=== PATIENT | male | born 1950 | race Caucasian/White ===

== ENCOUNTER 2016-09-22 20:35 | Outpatient (CLI) | payer MEDICARE, OTHER ==
--- NOTE | 2016-09-22 21:49 | Ultrasound Preliminary Report ---
Exam: US Duplex Ext Veins Left IMPRESSION: Extensive deep venous thrombosis extending from the common femoral vein through the popli teal vein, abscess described above. The calf veins were not well seen. [facility] The above critical findings were discussed with Dr. Pennington by Dr. Fernanda Marroquin at 21:48 hrs on . SITE ID: [id number]
--- NOTE | 2016-09-22 21:52 | Ultrasound Report ---
EXAM: LEFT LOWER EXTREMITY VENOUS ULTRASOUND EXAM DATE: 09/22/2016 08:48 PM. CLINICAL HISTORY: Left leg swelling. History of tibial plateau ORIF. COMPARISON: None. TECHNIQUE: Real-time sonographic vascular imaging was performed by the vacuum truck driver through the lower extremity utilizing both color-flow and Doppler spectral analysis. Multiple front desk representative static josephine ges were saved for review. FINDINGS: Common Femoral Vein (CFV): Nonocclusive thrombus. CFV-GSV Junction: Nonocclusive thrombus. Profunda Femoral Vein (PFV): Occlusive thrombus. Femoral Vein (FV) Prox: Occlusive thrombus. Femoral Vein (FV) Mid: Occlusive thrombus. Femoral Vein (FV) Dist: Occlusive thrombus. Popliteal Vein: Occlusive thrombus. Posterior Tibial Veins: Not well seen. Peroneal Veins: Not well seen. Other: Subcutaneous edema in the calf. IMPRESSION: Extensive deep venous thrombosis extending from the common femoral vein through the popli teal vein, abscess described above. The calf veins were not well seen. RADIA The above critical findings were discussed with Dr. Pennington by Dr. Fernanda Marroquin at 21:48 hrs on . Referring Provider Line: [phone] SITE ID: [id number]
== END 2016-09-22 20:36 | disposition home or self-care (01) ==
LOC: DI 20:35
PROVIDERS: ATTEND Orthopaedic Surgery
DX: I82.412 Acute embolism and thrombosis of left femoral vein (principal); I82.432 Acute embolism and thrombosis of left popliteal vein

== ENCOUNTER 2016-09-22 21:58 | Emergency (ER) | payer MEDICARE, OTHER ==
[2016-09-22 22:50] LABS: BASOPHILS # (AUTO) 0.1 10^3/uL (0.0-0.1); BASOPHILS % (AUTO) 1.3 %; EOSINOPHILS # (AUTO) 0.1 10^3/uL (0.0-0.7); HCT - HEMATOCRIT 42.2 % (42.0-52.0); HGB - HEMOGLOBIN 13.9 g/dL (14.0-18.0); LYMPHOCYTES # (AUTO) 1.9 10^3/uL (1.5-3.5); LYMPHOCYTES % (AUTO) 27.1 %; MEAN CORPUSCULAR HEMOGLOBIN 28.6 pg (27.0-31.0); MEAN CORPUSCULAR HGB CONC 32.9 g/dL (32.0-36.0); MEAN CORPUSCULAR VOLUME 86.9 fL (80.0-94.0); MEAN PLATELET VOLUME 6.7 fL (7.4-11.4); MONOCYTES # (AUTO) 0.6 10^3/uL (0.0-1.0); MONOCYTES % (AUTO) 8.6 %; NEUTROPHILS # (AUTO) 4.3 10^3/uL (1.5-6.6); RED BLOOD COUNT 4.86 10^6/uL (4.70-6.10); RED CELL DISTRIBUTION WIDTH 13.5 % (12.0-15.0); UNCORRECTED WHITE BLOOD COUNT 7.1 x10^3/uL; WHITE BLOOD COUNT 7.1 x10^3/uL (4.8-10.8)
[2016-09-22 22:56] LABS: INR 1.1 (0.8-1.2); PT - PROTHROMBIN TIME 12.4 secs (9.9-12.6)
--- NOTE | 2016-09-22 23:01 | ED Physician Documentation ---
History of Present Illness - Stated complaint Stated Complaint: LT LEG PX - Chief complaint Chief Complaint: Ext Problem - History obtained from History obtained from: Patient - History of Present Illness Timing: Chronic - Additonal information Additional information: Patient is a 65 year old male with a distant history of knee surgery who was sent to the orthopedist group for 6 months of leg swelling. at the ortho office patient was sent for an ultrasound. ultrasound revealed significant clot burden so the orthopedist, Dr. Pennington called and sent the patient in for treatment. Patient also reports some dyspnea with exertion over the last few weeks so there was some concern for PE as well. Review of Systems Constitutional: denies: Fever, Chills Eyes: denies: Loss of vision, Photophobia Ears: denies: Ear pain, Drainage/discharge Nose: denies: Rhinorrhea / runny nose, Congestion Throat: denies: Oral lesions / sores, Sore throat Cardiac: reports: Pedal edema, Calf pain. denies: Chest pain / pressure, Palpitations Respiratory: reports: Dyspnea. denies: Cough, Wheezing GI: denies: Abdominal Pain, Nausea, Vomiting : denies: Dysuria, Frequency, Hesitancy Skin: denies: Rash, Lesions Musculoskeletal: reports: Extremity pain, Extremity swelling. denies: Neck pain , Back pain Neurologic: denies: Generalized weakness, Focal weakness, Numbness, Difficulty speaking Immunocompromised: denies: Immunocompromised PD PAST MEDICAL HISTORY - Past Medical History Past Medical History: Yes Respiratory: Asthma, Pneumonia - Present Medications Home Medications: Ambulatory Orders Medication Instructions Recorded Confirmed buPROPion [Wellbutrin Sr] 1 tab ORAL DAILY 09/19/13 09/19/13 Enoxaparin [Lovenox] 80 mg SUBQ Q12H #20 syringe 09/23/16 Warfarin [Coumadin] 5 mg PO 1400 #10 tablet 09/23/16 - Allergies Allergies/Adverse Reactions: Allergies Allergy/AdvReac Type Severity Reaction Status Date / Time No Known Drug Allergies Allergy Verified 09/19/13 15:12 - Social History Does the pt smoke?: No Smoking Status: Never smoker Does the pt drink ETOH?: No Does the pt have substance abuse?: No PD ED PE NORMAL - Vitals Vital signs reviewed: Yes - General General: Alert and oriented X 3, No acute distress - HEENT HEENT: Atraumatic, PERRL - Neck Neck: Supple, no meningeal sign, No JVD - Cardiac Cardiac: RRR, No murmur - Respiratory Respiratory: No respiratory distress, Clear bilaterally - Abdomen Abdomen: Soft, Non tender, Non distended - Derm Derm: Normal color - Neuro Neuro: Alert and oriented X 3, No motor deficit, No sensory deficit, Normal speech - Psych Psych: Normal mood, Normal affect PD ED PE EXPANDED - Extremities Extremities: Pedal edema R, Left calf TTP/cord, Motor intact, Sensory intact, Vascular intact, Tendon intact. No: Decreased/absent pulse, Cold foot Results - Vitals Vitals: Vital Signs - 24 hr 09/22/16 09/23/16 22:10 00:41 Temperature 98.9 C H Heart Rate 85 78 Respiratory 18 16 Rate Blood Pressure 169/85 H 127/80 O2 Saturation 97 100 Oxygen O2 Source Room air - Labs Labs: Laboratory Tests 09/22/16 09/22/16 09/22/16 22:41 22:41 22:41 WBC 7.1 RBC 4.86 Hgb 13.9 L Hct 42.2 MCV 86.9 MCH 28.6 MCHC 32.9 RDW 13.5 Plt Count 331 MPV 6.7 L Neut # 4.3 Lymph # 1.9 [place] # 0.6 Eos # 0.1 Baso # 0.1 Absolute Nucleated RBC 0.00 Nucleated RBCs 0.0 PT 12.4 INR 1.1 APTT 24.5 L Sodium 139 Potassium 3.7 Chloride 102 Carbon Dioxide 29 Anion Gap 8.0 BUN 14 Creatinine 0.9 Estimated GFR (MDRD) 84 L Glucose 130 H Calcium 9.4 Total Bilirubin 0.3 AST 22 ALT 21 Alkaline Phosphatase 49 Troponin I B-Natriuretic Peptide Total Protein 7.9 Albumin 4.4 Globulin 3.5 Albumin/Globulin Ratio 1.3 Lipase 18 L 09/22/16 09/22/16 22:41 22:41 WBC RBC Hgb Hct MCV MCH MCHC RDW Plt Count MPV Neut # Lymph # [place] # Eos # Baso # Absolute Nucleated RBC Nucleated RBCs PT INR APTT Sodium Potassium Chloride Carbon Dioxide Anion Gap BUN Creatinine Estimated GFR (MDRD) Glucose Calcium Total Bilirubin AST ALT Alkaline Phosphatase Troponin I < 0.04 B-Natriuretic Peptide 57 Total Protein Albumin Globulin Albumin/Globulin Ratio Lipase - Rads (name of study) ct chest Radiology: Final report received (no pe appreciated), See rad report PD MEDICAL DECISION MAKING - ED course Complexity details: reviewed old records, reviewed results, re-evaluated patient , considered differential, d/w patient, d/w financial planning consultant ED course: Patient was seen and examined at bedside. IV access was gained and labs were drawn. Patient's previous results were reviewed and were consistent with dvt. patient was treated with lovenox and coumadin. when patient's labs came back patient was sent for imaging. When patient returned from imaging the results were reviewed. there was no acute PE appreciated. patient was educated on lovenox and heparin and given detailed discharge and return instructions. patient required no further work up and was stable for discharge with outpatient follow up. Departure - Departure Disposition: Home, Self Care Clinical Impression: DVT (deep venous thrombosis) Condition: Good Instructions: ED DVT Follow-Up: Joshua Coronado PA-C [Primary Care Provider] - Tomorrow Prescriptions: Warfarin [Coumadin] 5 mg PO 1400 #10 tablet Enoxaparin [Lovenox] 80 mg SUBQ Q12H #20 syringe Comments: Your symptoms are being caused by a blood clot in your leg. There are no blood clots in your chest at this time. You were started on lovenox and warfarin. You will need to take the lovenox shot twice a day until you get your warfarin to the appropriate levels. It is imperative that you call your doctor tomorrow to schedule a follow up appointment in the next few days. if you are unable to get the lovenox shot tomorrow from the pharmacy or your pmd you will need to return to emergency department for another shot. Discharge Date/Time: 09/23/16 00:49
[2016-09-22 23:03] LABS: PARTIAL THROMBOPLASTIN TIME 24.5 secs (24.9-33.3)
[2016-09-22 23:04] LABS: ALBUMIN/GLOBULIN RATIO 1.3 (1.0-2.2); BILIRUBIN,TOTAL 0.3 mg/dL (0.2-1.0); CALCIUM 9.4 mg/dL (8.5-10.3); CREATININE 0.9 mg/dL (0.6-1.2); POTASSIUM 3.7 mmol/L (3.5-5.0); TOTAL PROTEIN 7.9 g/dL (6.7-8.2)
[2016-09-22] MEDS ORDERED: WARFARIN 5 MG TABLET PO STA (23:48)
[2016-09-22] MEDS ORDERED: ENOXAPARIN 80 MG/0.8 ML SYRINGE SUBQ STA (23:48)
[2016-09-22] MEDS ORDERED: IOPAMIDOL-300 100 ML VIAL IVP ONE (23:51)
[2016-09-22] MEDS ORDERED: ENOXAPARIN 80 MG/0.8 ML SYRINGE SUBQ ONE (23:54)
--- NOTE | 2016-09-23 00:20 | CT Report ---
EXAM: CT ANGIOGRAM CHEST EXAM DATE: 09/22/2016 11:55 PM. CLINICAL HISTORY: Dyspnea. COMPARISON: None. TECHNIQUE: Routine helical imaging was performed through the chest in the pulmonary arterial phase. I V Contrast: 100 cc Isovue-300. Reconstructions: Coronal 3-D MIP reconstructions.Sagittal and coronal. In accordance with CT protocol optimization, one or more of the following dose reduction techniques w ere utilized for this exam: automated exposure control, adjustment of mA and/or KV based on patient s ize, or use of iterative reconstructive technique. FINDINGS: Pulmonary Arteries: Diagnostic quality: Adequate through the mid segmental arteries. No evidence for acute or chronic pul monary emboli. RV/LV is within normal limits. There is no interventricular septal bowing. There is no reflux of cont rast material in the IVC. Lungs/Pleura: There are areas of peripheral consolidation with architectural distortion within the ri ght middle lobe and right lower lobe. Left lung demonstrates no acute abnormalities. No evidence of p neumothorax. Mediastinum: Normal. No cardiac enlargement or adenopathy. Thoracic Aorta: Unremarkable. Upper Abdomen: Unremarkable. Other: Areas of hypodensity within the mid and lower thoracic spine likely represent hemangiomas. IMPRESSION: 1. No evidence of acute pulmonary embolism through the segmental branch level. 2. There are areas of juxtapleural consolidation with architectural distortion and traction bronchiec tasis seen within the right middle lobe and left lower lobe. Differential considerations include scar ring or organizing pneumonia. [address] follow-up could be used to demonstrate stabil ity/resolution of these foci and to exclude underlying mass. 3. No thoracic aortic dissection. [facility] Referring Provider Line: [phone] SITE ID: [id number]
[2016-09-23 00:50] VITALS: BP 127/80
== END 2016-09-23 00:49 | disposition home or self-care (01) ==
LOC: ED 21:58
DX: I82.403 Acute embolism and thrombosis of unspecified deep veins of lower extremity, bilateral (principal); J45.909 Unspecified asthma, uncomplicated
CPT/HCPCS: 36415; 71275; 80053; 83690; 83880; 84484; 85025; 85610; 85730; 93971; 96372; 99283; 99285; A9270; J1650; Q9967

== ENCOUNTER 2016-09-25 14:38 | Outpatient (CLI) | payer MEDICARE, OTHER | END 2016-09-25 14:39 | disposition home or self-care (01) | LOC: LAB.N 14:38 | PROVIDERS: ATTEND Physician Assistant | DX: I82.90 Acute embolism and thrombosis of unspecified vein (principal) | CPT/HCPCS: 85610 ==

== ENCOUNTER 2016-09-29 08:00 | Outpatient (CLI) | payer MEDICARE, OTHER | END 2016-09-29 08:01 | disposition home or self-care (01) | LOC: LAB.N 08:00 | PROVIDERS: ATTEND Physician Assistant | DX: I82.90 Acute embolism and thrombosis of unspecified vein (principal) | CPT/HCPCS: 85610 ==

== ENCOUNTER 2016-10-02 10:24 | Outpatient (CLI) | payer MEDICARE, OTHER | END 2016-10-02 10:25 | disposition home or self-care (01) | LOC: LAB.N 10:24 | PROVIDERS: ATTEND Physician Assistant | DX: I82.90 Acute embolism and thrombosis of unspecified vein (principal) | CPT/HCPCS: 85610 ==

== ENCOUNTER 2016-10-06 11:45 | Outpatient (CLI) | payer MEDICARE, OTHER | END 2016-10-06 11:46 | disposition home or self-care (01) | LOC: LAB.N 11:45 | PROVIDERS: ATTEND Physician Assistant | DX: I82.90 Acute embolism and thrombosis of unspecified vein (principal) | CPT/HCPCS: 85610 ==

== ENCOUNTER 2016-10-09 09:33 | Outpatient (CLI) | payer MEDICARE, OTHER | END 2016-10-09 09:34 | disposition home or self-care (01) | LOC: LAB.N 09:33 | PROVIDERS: ATTEND Physician Assistant | DX: I82.90 Acute embolism and thrombosis of unspecified vein (principal) | CPT/HCPCS: 85610 ==

== ENCOUNTER 2016-10-13 11:33 | Outpatient (CLI) | payer MEDICARE, OTHER | END 2016-10-13 11:34 | disposition home or self-care (01) | LOC: LAB.N 11:33 | PROVIDERS: ATTEND Physician Assistant | DX: I82.90 Acute embolism and thrombosis of unspecified vein (principal) | CPT/HCPCS: 85610 ==

== ENCOUNTER 2016-10-20 22:08 | Outpatient (CLI) | payer MEDICARE, OTHER | END 2016-10-20 22:09 | disposition home or self-care (01) | LOC: LAB.N 22:08 | PROVIDERS: ATTEND Physician Assistant | DX: I82.90 Acute embolism and thrombosis of unspecified vein (principal) | CPT/HCPCS: 85610 ==

== ENCOUNTER 2016-11-03 07:43 | Outpatient (CLI) | payer MEDICARE, OTHER | END 2016-11-03 07:44 | disposition home or self-care (01) | LOC: LAB.N 07:43 | PROVIDERS: ATTEND Physician Assistant | DX: I82.90 Acute embolism and thrombosis of unspecified vein (principal) | CPT/HCPCS: 85610 ==

== ENCOUNTER 2016-11-17 09:50 | Outpatient (CLI) | payer MEDICARE, OTHER | END 2016-11-17 09:51 | disposition home or self-care (01) | LOC: LAB.N 09:50 | PROVIDERS: ATTEND Physician Assistant | DX: I82.90 Acute embolism and thrombosis of unspecified vein (principal) | CPT/HCPCS: 85610 ==

== ENCOUNTER 2016-12-03 08:00 | Outpatient (CLI) | payer MEDICARE, OTHER | END 2016-12-03 08:01 | disposition home or self-care (01) | LOC: LAB.N 08:00 | PROVIDERS: ATTEND Physician Assistant | DX: I82.90 Acute embolism and thrombosis of unspecified vein (principal) | CPT/HCPCS: 85610 ==

== ENCOUNTER 2016-12-31 09:08 | Outpatient (CLI) | payer MEDICARE, OTHER | END 2016-12-31 09:09 | disposition home or self-care (01) | LOC: LAB.N 09:08 | PROVIDERS: ATTEND Family Medicine | DX: I82.409 Acute embolism and thrombosis of unspecified deep veins of unspecified lower extremity (principal) | CPT/HCPCS: 85610 ==

== ENCOUNTER 2017-01-28 15:09 | Outpatient (CLI) | payer MEDICARE, OTHER | END 2017-01-28 15:10 | disposition home or self-care (01) | LOC: LAB.N 15:09 | PROVIDERS: ATTEND Family Medicine | DX: I82.90 Acute embolism and thrombosis of unspecified vein (principal) | CPT/HCPCS: 85610 ==

== ENCOUNTER 2017-03-03 08:30 | Outpatient (CLI) | payer MEDICARE, OTHER | END 2017-03-03 08:31 | disposition home or self-care (01) | LOC: LAB.N 08:30 | PROVIDERS: ATTEND Family Medicine | DX: I82.90 Acute embolism and thrombosis of unspecified vein (principal) | CPT/HCPCS: 85610 ==

== ENCOUNTER 2017-03-10 19:36 | Outpatient (CLI) | payer MEDICARE, OTHER | END 2017-03-10 19:37 | disposition home or self-care (01) | LOC: LAB.N 19:36 | PROVIDERS: ATTEND Family Medicine | DX: I82.90 Acute embolism and thrombosis of unspecified vein (principal) | CPT/HCPCS: 85610 ==

== ENCOUNTER 2017-03-17 15:02 | Outpatient (CLI) | payer MEDICARE, OTHER | END 2017-03-17 15:03 | disposition home or self-care (01) | LOC: LAB.N 15:02 | PROVIDERS: ATTEND Family Medicine | DX: I82.90 Acute embolism and thrombosis of unspecified vein (principal) | CPT/HCPCS: 85610 ==

== ENCOUNTER 2017-03-27 08:00 | Outpatient (CLI) | payer MEDICARE, OTHER ==
[2017-03-27 13:45] LABS: THYROID STIMULATING HORMONE 1.79 uIU/mL (0.34-5.60)
[2017-03-27 13:46] LABS: BASOPHILS # (AUTO) 0.1 10^3/uL (0.0-0.1); BASOPHILS % (AUTO) 1.1 %; EOSINOPHILS # (AUTO) 0.1 10^3/uL (0.0-0.7); EOSINOPHILS % (AUTO) 1.5 %; HCT - HEMATOCRIT 40.6 % (42.0-52.0); HGB - HEMOGLOBIN 13.7 g/dL (14.0-18.0); IMMATURE RETIC FRACTION 0.33; LYMPHOCYTES # (AUTO) 1.6 10^3/uL (1.5-3.5); LYMPHOCYTES % (AUTO) 26.1 %; MEAN CORPUSCULAR HEMOGLOBIN 29.7 pg (27.0-31.0); MEAN CORPUSCULAR HGB CONC 33.8 g/dL (32.0-36.0); MEAN CORPUSCULAR VOLUME 87.9 fL (80.0-94.0); MONOCYTES # (AUTO) 0.8 10^3/uL (0.0-1.0); MONOCYTES % (AUTO) 12.6 %; NEUTROPHILS # (AUTO) 3.7 10^3/uL (1.5-6.6); NEUTROPHILS % (AUTO) 58.7 %; RED BLOOD COUNT 4.62 10^6/uL (4.70-6.10); RED CELL DISTRIBUTION WIDTH 14.4 % (12.0-15.0); UNCORRECTED WHITE BLOOD COUNT 6.3 x10^3/uL; WHITE BLOOD COUNT 6.3 x10^3/uL (4.8-10.8)
[2017-03-27 13:50] LABS: FERRITIN 78.5 ng/mL (23.9-336.2)
[2017-03-27 14:00] LABS: ALBUMIN/GLOBULIN RATIO 1.3 (1.0-2.2); BILIRUBIN,TOTAL 0.6 mg/dL (0.2-1.0); BUN - BLOOD UREA NITROGEN 14 mg/dL (6-20); CALCIUM 9.3 mg/dL (8.5-10.3); CARBON DIOXIDE - CO2 25 mmol/L (21-32); CHLORIDE 102 mmol/L (101-111); CHOL/HDL RATIO 2.9 (<5.0); CHOLESTEROL 166 mg/dL; GFR - MDRD 74 (>89); GLUCOSE 107 mg/dL (70-100); HDL CHOLESTEROL 58 mg/dL; IRON 57 ug/dL (45-182); LDL/HDL RATIO 1.7 (<3.6); POTASSIUM 3.9 mmol/L (3.5-5.0); SODIUM 138 mmol/L (135-145); TOTAL IRON BINDING CAPACITY 307 ug/dL (250-450); TOTAL PROTEIN 7.5 g/dL (6.7-8.2); TRANSFERRIN 219 mg/dL (180-329); TRIGLYCERIDES 56 mg/dL; VLDL CHOLESTEROL 11 mg/dL
== END 2017-03-27 08:01 | disposition home or self-care (01) ==
LOC: LAB.N 08:00
PROVIDERS: ATTEND Family Medicine
DX: I82.90 Acute embolism and thrombosis of unspecified vein (principal); I10 Essential (primary) hypertension; D50.9 Iron deficiency anemia, unspecified; Z79.01 Long term (current) use of anticoagulants; R42 Dizziness and giddiness
CPT/HCPCS: 36415; 80053; 80061; 82728; 83540; 84443; 84466; 85025; 85044; 85610; 93005

== ENCOUNTER 2017-03-30 08:41 | Outpatient (CLI) | payer MEDICARE, OTHER | END 2017-03-30 08:42 | disposition home or self-care (01) | LOC: LAB.N 08:41 | PROVIDERS: ATTEND Family Medicine | DX: I82.90 Acute embolism and thrombosis of unspecified vein (principal) | CPT/HCPCS: 85610 ==

== ENCOUNTER 2017-04-07 08:00 | Outpatient (CLI) | payer MEDICARE, OTHER | END 2017-04-07 08:01 | disposition home or self-care (01) | LOC: LAB.N 08:00 | PROVIDERS: ATTEND Family Medicine | DX: I82.90 Acute embolism and thrombosis of unspecified vein (principal) | CPT/HCPCS: 85610 ==

== ENCOUNTER 2017-04-14 08:00 | Outpatient (CLI) | payer MEDICARE, OTHER | END 2017-04-14 08:01 | disposition home or self-care (01) | LOC: LAB.N 08:00 | PROVIDERS: ATTEND Family Medicine | DX: I82.90 Acute embolism and thrombosis of unspecified vein (principal) | CPT/HCPCS: 85610 ==

== ENCOUNTER 2017-04-21 08:00 | Outpatient (CLI) | payer MEDICARE, OTHER | END 2017-04-21 08:01 | disposition home or self-care (01) | LOC: LAB.N 08:00 | PROVIDERS: ATTEND Family Medicine | DX: I82.90 Acute embolism and thrombosis of unspecified vein (principal) | CPT/HCPCS: 85610 ==

== ENCOUNTER 2017-05-05 09:08 | Outpatient (CLI) | payer MEDICARE, OTHER | END 2017-05-05 09:09 | disposition home or self-care (01) | LOC: LAB.N 09:08 | PROVIDERS: ATTEND Family Medicine | DX: I82.90 Acute embolism and thrombosis of unspecified vein (principal) | CPT/HCPCS: 85610 ==

== ENCOUNTER 2017-06-03 08:12 | Outpatient (CLI) | payer MEDICARE, OTHER | END 2017-06-03 08:13 | disposition home or self-care (01) | LOC: LAB.N 08:12 | PROVIDERS: ATTEND Family Medicine | DX: I82.90 Acute embolism and thrombosis of unspecified vein (principal) | CPT/HCPCS: 85610 ==

== ENCOUNTER 2017-06-30 08:08 | Outpatient (CLI) | payer MEDICARE, OTHER | END 2017-06-30 08:09 | disposition home or self-care (01) | LOC: LAB.N 08:08 | PROVIDERS: ATTEND Family Medicine | DX: I82.90 Acute embolism and thrombosis of unspecified vein (principal) | CPT/HCPCS: 85610 ==

== ENCOUNTER 2017-07-29 08:22 | Outpatient (CLI) | payer MEDICARE, OTHER | END 2017-07-29 08:23 | disposition home or self-care (01) | LOC: LAB.N 08:22 | PROVIDERS: ATTEND Family Medicine | DX: I82.90 Acute embolism and thrombosis of unspecified vein (principal) | CPT/HCPCS: 85610 ==

== ENCOUNTER 2017-08-11 09:06 | Outpatient (CLI) | payer MEDICARE, OTHER | END 2017-08-11 09:07 | LOC: LAB.N 09:06 | PROVIDERS: ATTEND Family Medicine | DX: I82.90 Acute embolism and thrombosis of unspecified vein (principal) | CPT/HCPCS: 85610 ==

== ENCOUNTER 2017-09-08 08:10 | Outpatient (CLI) | payer MEDICARE, OTHER | END 2017-09-08 08:11 | LOC: LAB.N 08:10 | PROVIDERS: ATTEND Family Medicine | DX: I82.90 Acute embolism and thrombosis of unspecified vein (principal) | CPT/HCPCS: 85610 ==

== ENCOUNTER 2017-09-15 08:00 | Outpatient (CLI) | payer MEDICARE, OTHER | END 2017-09-15 08:01 | disposition home or self-care (01) | LOC: LAB.N 08:00 | PROVIDERS: ATTEND Family Medicine | DX: I82.90 Acute embolism and thrombosis of unspecified vein (principal) | CPT/HCPCS: 85610 ==

== ENCOUNTER 2017-09-15 10:27 | Outpatient (CLI) | payer MEDICARE, OTHER ==
--- NOTE | 2017-09-15 12:09 | Ultrasound Report ---
LEFT LEG VENOUS DUPLEX: 09/15/2017 CLINICAL INDICATION: Followup DVT. COMPARISON: 03/31/2017. TECHNIQUE: Real-time sonographic vascular imaging was performed by the shipmaster through the left leg utilizing both color-flow and Doppler spectral analysis. Multiple medical office representative static images were saved for review. FINDINGS: There is persistent thrombus in the left superficial femoral vein and popliteal vein. The calf veins appear unremarkable, and the left common femoral vein is patent, as is the profunda femoris. IMPRESSION: PERSISTENT RECANALIZED THROMBUS IN THE LEFT SUPERFICIAL FEMORAL AND POPLITEAL VEINS. TD: 09/15/2017 11:32
== END 2017-09-15 10:28 | disposition home or self-care (01) ==
LOC: DI 10:27
PROVIDERS: ATTEND Family Medicine
DX: I82.412 Acute embolism and thrombosis of left femoral vein (principal); I82.432 Acute embolism and thrombosis of left popliteal vein
CPT/HCPCS: 85610

== ENCOUNTER 2017-09-18 09:35 | Outpatient (CLI) | payer MEDICARE, OTHER | END 2017-09-18 09:36 | disposition home or self-care (01) | LOC: LAB.N 09:35 | PROVIDERS: ATTEND Family Medicine | DX: I82.90 Acute embolism and thrombosis of unspecified vein (principal) | CPT/HCPCS: 85610 ==

== ENCOUNTER 2017-09-22 08:00 | Outpatient (CLI) | payer MEDICARE, OTHER | END 2017-09-22 08:01 | disposition home or self-care (01) | LOC: LAB.N 08:00 | PROVIDERS: ATTEND Family Medicine | DX: I82.90 Acute embolism and thrombosis of unspecified vein (principal) | CPT/HCPCS: 85610 ==

== ENCOUNTER 2017-10-06 08:00 | Outpatient (CLI) | payer MEDICARE, OTHER | END 2017-10-06 08:01 | disposition home or self-care (01) | LOC: LAB.N 08:00 | PROVIDERS: ATTEND Family Medicine | DX: I82.90 Acute embolism and thrombosis of unspecified vein (principal) | CPT/HCPCS: 85610 ==

== ENCOUNTER 2017-10-07 08:00 | Outpatient (CLI) | payer MEDICARE, OTHER ==
[2017-10-07 12:30] LABS: BASOPHILS # (AUTO) 0.1 10^3/uL (0.0-0.1); BASOPHILS % (AUTO) 1.5 %; EOSINOPHILS # (AUTO) 0.1 10^3/uL (0.0-0.7); EOSINOPHILS % (AUTO) 1.5 %; HGB - HEMOGLOBIN 13.8 g/dL (14.0-18.0); LYMPHOCYTES # (AUTO) 1.5 10^3/uL (1.5-3.5); LYMPHOCYTES % (AUTO) 31.5 %; MEAN CORPUSCULAR HEMOGLOBIN 29.2 pg (27.0-31.0); MEAN CORPUSCULAR VOLUME 88.5 fL (80.0-94.0); MEAN PLATELET VOLUME 8.3 fL (7.4-11.4); MONOCYTES # (AUTO) 0.5 10^3/uL (0.0-1.0); MONOCYTES % (AUTO) 10.8 %; NEUTROPHILS # (AUTO) 2.5 10^3/uL (1.5-6.6); NEUTROPHILS % (AUTO) 54.7 %; PLT - PLATELET COUNT 215 10^3/uL (130-450); RED BLOOD COUNT 4.71 10^6/uL (4.70-6.10); RED CELL DISTRIBUTION WIDTH 14.5 % (12.0-15.0); WHITE BLOOD COUNT 4.6 x10^3/uL (4.8-10.8)
[2017-10-07 12:33] LABS: ALBUMIN 3.7 g/dL (3.2-5.5); ALBUMIN/GLOBULIN RATIO 1.1 (1.0-2.2); ALKALINE PHOSPHATASE 38 IU/L (42-121); ALT ALANINE AMINOTRANSFERASE 20 IU/L (10-60); AST ASPARTATE AMINOTRANSFERASE 21 IU/L (10-42); BILIRUBIN,TOTAL 0.6 mg/dL (0.2-1.0); BUN - BLOOD UREA NITROGEN 10 mg/dL (6-20); CALCIUM 8.9 mg/dL (8.5-10.3); CARBON DIOXIDE - CO2 31 mmol/L (21-32); CHLORIDE 104 mmol/L (101-111); CHOL/HDL RATIO 3.4 (<5.0); CHOLESTEROL 141 mg/dL; CREATININE 0.9 mg/dL (0.6-1.2); GFR - MDRD 84 (>89); GLUCOSE 100 mg/dL (70-100); HDL CHOLESTEROL 41 mg/dL; LDL CHOLESTEROL,CALCULATED 79 mg/dL; LDL/HDL RATIO 1.9 (<3.6); SODIUM 141 mmol/L (135-145); VLDL CHOLESTEROL 21 mg/dL
[2017-10-07 12:42] LABS: HB2 TOTAL 15.2 g/dL; HEMOGLOBIN A1C 0.52 g/dL; HEMOGLOBIN A1C % 5.3 % (4.6-6.2)
== END 2017-10-07 08:01 ==
LOC: LAB.N 08:00
PROVIDERS: ATTEND Family Medicine
DX: I10 Essential (primary) hypertension (principal); I82.90 Acute embolism and thrombosis of unspecified vein; F32.9 Major depressive disorder, single episode, unspecified; R73.9 Hyperglycemia, unspecified
CPT/HCPCS: 36415; 80053; 80061; 83036; 83721; 84443; 85025

== ENCOUNTER 2017-10-28 08:00 | Outpatient (CLI) | payer MEDICARE, OTHER | END 2017-10-28 08:01 | disposition home or self-care (01) | LOC: LAB.N 08:00 | PROVIDERS: ATTEND Family Medicine | DX: I82.90 Acute embolism and thrombosis of unspecified vein (principal) | CPT/HCPCS: 85610 ==

== ENCOUNTER 2017-11-04 08:00 | Outpatient (CLI) | payer MEDICARE, OTHER | END 2017-11-04 08:01 | disposition home or self-care (01) | LOC: LAB.N 08:00 | PROVIDERS: ATTEND Family Medicine | DX: I82.90 Acute embolism and thrombosis of unspecified vein (principal) | CPT/HCPCS: 85610 ==

== ENCOUNTER 2017-11-27 07:39 | Outpatient (CLI) | payer MEDICARE, OTHER | END 2017-11-27 07:40 | disposition home or self-care (01) | LOC: LAB.N 07:39 | PROVIDERS: ATTEND Family Medicine | DX: I82.90 Acute embolism and thrombosis of unspecified vein (principal) | CPT/HCPCS: 85610 ==

== ENCOUNTER 2017-12-10 09:59 | Outpatient (CLI) | payer MEDICARE, OTHER | END 2017-12-10 10:00 | disposition home or self-care (01) | LOC: LAB 09:59 | PROVIDERS: ATTEND Family Medicine | DX: I82.90 Acute embolism and thrombosis of unspecified vein (principal) | CPT/HCPCS: 85610 ==

== ENCOUNTER 2018-02-23 10:51 | Outpatient (CLI) | payer MEDICARE, OTHER | END 2018-02-23 10:52 | disposition home or self-care (01) | LOC: LAB 10:51 | PROVIDERS: ATTEND Family Medicine | DX: I82.90 Acute embolism and thrombosis of unspecified vein (principal) | CPT/HCPCS: 85610 ==

== ENCOUNTER 2018-03-31 08:25 | Outpatient (CLI) | payer MEDICARE, OTHER | END 2018-03-31 23:59 | disposition home or self-care (01) | LOC: LAB.N 08:25 | PROVIDERS: ATTEND Family Medicine | DX: I82.90 Acute embolism and thrombosis of unspecified vein (principal) | CPT/HCPCS: 85610 ==

== ENCOUNTER 2018-05-07 11:25 | Outpatient (CLI) | payer MEDICARE, OTHER | END 2018-05-07 23:59 | disposition home or self-care (01) | LOC: LAB.N 11:25 | PROVIDERS: ATTEND Nurse Practitioner | DX: Z79.01 Long term (current) use of anticoagulants (principal) | CPT/HCPCS: 85610 ==

== ENCOUNTER 2018-06-09 13:34 | Outpatient (CLI) | payer MEDICARE, OTHER | END 2018-06-09 13:35 | disposition home or self-care (01) | LOC: LAB 13:34 | PROVIDERS: ATTEND Nurse Practitioner | DX: Z79.01 Long term (current) use of anticoagulants (principal) | CPT/HCPCS: 85610 ==

== ENCOUNTER 2018-07-05 10:12 | Outpatient (CLI) | payer MEDICARE, OTHER | END 2018-07-05 23:59 | LOC: LAB.N 10:12 | PROVIDERS: ATTEND Nurse Practitioner | DX: Z79.01 Long term (current) use of anticoagulants (principal) | CPT/HCPCS: 85610 ==

== ENCOUNTER 2018-07-12 08:00 | Outpatient (CLI) | payer MEDICARE, OTHER | END 2018-07-12 23:59 | disposition home or self-care (01) | LOC: LAB.N 08:00 | PROVIDERS: ATTEND Nurse Practitioner | DX: Z79.01 Long term (current) use of anticoagulants (principal) | CPT/HCPCS: 85610 ==

== ENCOUNTER 2018-07-19 08:00 | Outpatient (CLI) | payer MEDICARE, OTHER | END 2018-07-19 08:01 | disposition home or self-care (01) | LOC: LAB.N 08:00 | PROVIDERS: ATTEND Nurse Practitioner | DX: Z79.01 Long term (current) use of anticoagulants (principal) | CPT/HCPCS: 85610 ==

== ENCOUNTER 2018-07-28 08:33 | Outpatient (CLI) | payer MEDICARE, OTHER | END 2018-07-28 23:59 | disposition home or self-care (01) | LOC: LAB.N 08:33 | PROVIDERS: ATTEND Nurse Practitioner | DX: Z79.01 Long term (current) use of anticoagulants (principal) | CPT/HCPCS: 85610 ==

== ENCOUNTER 2018-08-10 08:00 | Outpatient (CLI) | payer MEDICARE, OTHER | END 2018-08-10 08:01 | disposition home or self-care (01) | LOC: LAB.N 08:00 | PROVIDERS: ATTEND Nurse Practitioner | DX: Z79.01 Long term (current) use of anticoagulants (principal) | CPT/HCPCS: 85610 ==

== ENCOUNTER 2018-09-07 10:29 | Outpatient (CLI) | payer MEDICARE, OTHER | END 2018-09-07 10:30 | disposition home or self-care (01) | LOC: LAB 10:29 | PROVIDERS: ATTEND Nurse Practitioner | DX: Z79.01 Long term (current) use of anticoagulants (principal) | CPT/HCPCS: 85610 ==

== ENCOUNTER 2018-10-04 08:00 | Outpatient (CLI) | payer MEDICARE, OTHER ==
[2018-10-04 18:30] LABS: BASOPHILS # (AUTO) 0.1 10^3/uL (0.0-0.1); BASOPHILS % (AUTO) 1.1 %; EOSINOPHILS # (AUTO) 0.1 10^3/uL (0.0-0.7); EOSINOPHILS % (AUTO) 1.1 %; HGB - HEMOGLOBIN 13.8 g/dL (14.0-18.0); LYMPHOCYTES # (AUTO) 1.4 10^3/uL (1.5-3.5); LYMPHOCYTES % (AUTO) 26.9 %; MEAN CORPUSCULAR HEMOGLOBIN 29.5 pg (27.0-31.0); MEAN CORPUSCULAR HGB CONC 32.7 g/dL (32.0-36.0); MEAN CORPUSCULAR VOLUME 90.4 fL (80.0-94.0); MEAN PLATELET VOLUME 8.1 fL (7.4-11.4); MONOCYTES # (AUTO) 0.4 10^3/uL (0.0-1.0); MONOCYTES % (AUTO) 8.9 %; NEUTROPHILS # (AUTO) 3.1 10^3/uL (1.5-6.6); PLT - PLATELET COUNT 257 10^3/uL (130-450); RED BLOOD COUNT 4.66 10^6/uL (4.70-6.10); RED CELL DISTRIBUTION WIDTH 14.2 % (12.0-15.0); WHITE BLOOD COUNT 5.1 x10^3/uL (4.8-10.8)
[2018-10-04 19:13] LABS: ALBUMIN 4.3 g/dL (3.2-5.5); ALBUMIN/GLOBULIN RATIO 1.3 (1.0-2.2); BILIRUBIN,TOTAL 0.5 mg/dL (0.2-1.0); CALCIUM 9.5 mg/dL (8.5-10.3); CREATININE 1.1 mg/dL (0.6-1.2); TOTAL PROTEIN 7.7 g/dL (6.7-8.2)
== END 2018-10-04 23:59 | disposition home or self-care (01) ==
LOC: LAB.N 08:00
PROVIDERS: ATTEND Physician Assistant Medical
DX: I10 Essential (primary) hypertension (principal); I82.409 Acute embolism and thrombosis of unspecified deep veins of unspecified lower extremity
CPT/HCPCS: 36415; 80053; 85025; 85610

== ENCOUNTER 2018-11-15 11:45 | Outpatient (CLI) | payer MEDICARE, OTHER | END 2018-11-15 11:46 | disposition home or self-care (01) | LOC: LAB 11:45 | PROVIDERS: ATTEND Physician Assistant Medical | DX: I82.90 Acute embolism and thrombosis of unspecified vein (principal) | CPT/HCPCS: 85610 ==

== ENCOUNTER 2018-12-15 13:50 | Outpatient (CLI) | payer MEDICARE, OTHER | END 2018-12-15 13:51 | disposition home or self-care (01) | LOC: LAB 13:50 | PROVIDERS: ATTEND Physician Assistant Medical | DX: I82.90 Acute embolism and thrombosis of unspecified vein (principal) | CPT/HCPCS: 85610 ==

== ENCOUNTER 2019-01-18 14:18 | Outpatient (CLI) | payer MEDICARE, OTHER | END 2019-01-18 14:19 | disposition home or self-care (01) | LOC: LAB 14:18 | PROVIDERS: ATTEND Physician Assistant Medical | DX: I82.90 Acute embolism and thrombosis of unspecified vein (principal) | CPT/HCPCS: 85610 ==

== ENCOUNTER 2019-02-16 14:53 | Outpatient (CLI) | payer MEDICARE, OTHER | END 2019-02-16 14:54 | disposition home or self-care (01) | LOC: LAB 14:53 | PROVIDERS: ATTEND Physician Assistant Medical | DX: I82.90 Acute embolism and thrombosis of unspecified vein (principal) | CPT/HCPCS: 85610 ==

== ENCOUNTER 2019-03-15 11:04 | Outpatient (CLI) | payer MEDICARE, OTHER | END 2019-03-15 11:05 | disposition home or self-care (01) | LOC: LAB 11:04 | PROVIDERS: ATTEND Physician Assistant Medical | DX: I82.90 Acute embolism and thrombosis of unspecified vein (principal) | CPT/HCPCS: 85610 ==

== ENCOUNTER 2019-04-15 13:11 | Outpatient (CLI) | payer MEDICARE, OTHER | END 2019-04-15 13:12 | disposition home or self-care (01) | LOC: LAB 13:11 | PROVIDERS: ATTEND Physician Assistant Medical | DX: I82.90 Acute embolism and thrombosis of unspecified vein (principal) | CPT/HCPCS: 85610 ==

== ENCOUNTER 2019-05-19 12:49 | Outpatient (CLI) | payer MEDICARE, OTHER | END 2019-05-19 12:50 | disposition home or self-care (01) | LOC: LAB 12:49 | PROVIDERS: ATTEND Physician Assistant Medical | DX: I82.90 Acute embolism and thrombosis of unspecified vein (principal) | CPT/HCPCS: 85610 ==

== ENCOUNTER 2019-06-17 12:15 | Outpatient (CLI) | payer MEDICARE, OTHER | END 2019-06-17 12:16 | disposition home or self-care (01) | LOC: LAB 12:15 | PROVIDERS: ATTEND Physician Assistant Medical | DX: I82.90 Acute embolism and thrombosis of unspecified vein (principal) | CPT/HCPCS: 85610 ==

== ENCOUNTER 2019-07-28 08:00 | Outpatient (CLI) | payer MEDICARE, OTHER | END 2019-07-28 23:59 | disposition home or self-care (01) | LOC: LAB.WCP 08:00 | PROVIDERS: ATTEND Physician Assistant Medical | DX: I82.402 Acute embolism and thrombosis of unspecified deep veins of left lower extremity (principal); Z79.01 Long term (current) use of anticoagulants ==

== ENCOUNTER 2019-08-25 08:24 | Outpatient (CLI) | payer MEDICARE, OTHER | END 2019-08-25 08:25 | disposition home or self-care (01) | LOC: LAB 08:24 | PROVIDERS: ATTEND Physician Assistant Medical | DX: I82.90 Acute embolism and thrombosis of unspecified vein (principal) | CPT/HCPCS: 85610 ==

== ENCOUNTER 2019-09-21 08:35 | Outpatient (CLI) | payer MEDICARE, OTHER | END 2019-09-21 08:36 | disposition home or self-care (01) | LOC: LAB 08:35 | PROVIDERS: ATTEND Physician Assistant Medical | DX: I82.90 Acute embolism and thrombosis of unspecified vein (principal) | CPT/HCPCS: 85610 ==

== ENCOUNTER 2019-10-19 09:40 | Outpatient (CLI) | payer MEDICARE, OTHER | END 2019-10-19 09:41 | disposition home or self-care (01) | LOC: LAB 09:40 | PROVIDERS: ATTEND Physician Assistant Medical | DX: I82.90 Acute embolism and thrombosis of unspecified vein (principal) | CPT/HCPCS: 85610 ==

== ENCOUNTER 2019-10-31 10:06 | Outpatient (CLI) | payer MEDICARE, OTHER | END 2019-10-31 10:07 | disposition home or self-care (01) | LOC: LAB 10:06 | PROVIDERS: ATTEND Physician Assistant Medical | DX: I82.90 Acute embolism and thrombosis of unspecified vein (principal) | CPT/HCPCS: 85610 ==

== ENCOUNTER 2019-12-14 13:10 | Outpatient (CLI) | payer MEDICARE, OTHER | END 2019-12-14 13:11 | disposition home or self-care (01) | LOC: LAB 13:10 | PROVIDERS: ATTEND Physician Assistant Medical | DX: I82.90 Acute embolism and thrombosis of unspecified vein (principal) | CPT/HCPCS: 85610 ==

== ENCOUNTER 2019-12-20 13:44 | Outpatient (CLI) | payer MEDICARE, OTHER | END 2019-12-20 13:45 | disposition home or self-care (01) | LOC: LAB 13:44 | PROVIDERS: ATTEND Physician Assistant Medical | DX: I82.90 Acute embolism and thrombosis of unspecified vein (principal) | CPT/HCPCS: 85610 ==

== ENCOUNTER 2019-12-29 10:03 | Outpatient (CLI) | payer MEDICARE, OTHER | END 2019-12-29 10:04 | disposition home or self-care (01) | LOC: LAB 10:03 | PROVIDERS: ATTEND Physician Assistant Medical | DX: I82.90 Acute embolism and thrombosis of unspecified vein (principal) | CPT/HCPCS: 85610 ==

== ENCOUNTER 2020-01-05 10:06 | Outpatient (CLI) | payer MEDICARE, OTHER | END 2020-01-05 10:07 | disposition home or self-care (01) | LOC: LAB 10:06 | PROVIDERS: ATTEND Physician Assistant Medical | DX: I82.90 Acute embolism and thrombosis of unspecified vein (principal) | CPT/HCPCS: 85610 ==

== ENCOUNTER 2020-01-19 13:54 | Outpatient (CLI) | payer MEDICARE, OTHER | END 2020-01-19 13:55 | disposition home or self-care (01) | LOC: LAB 13:54 | PROVIDERS: ATTEND Physician Assistant Medical | DX: I82.90 Acute embolism and thrombosis of unspecified vein (principal) | CPT/HCPCS: 85610 ==

== ENCOUNTER 2020-01-31 13:19 | Outpatient (CLI) | payer MEDICARE, OTHER | END 2020-01-31 13:20 | disposition home or self-care (01) | LOC: LAB 13:19 | PROVIDERS: ATTEND Physician Assistant Medical | DX: I82.90 Acute embolism and thrombosis of unspecified vein (principal) | CPT/HCPCS: 85610 ==

== ENCOUNTER 2020-02-15 12:47 | Outpatient (CLI) | payer MEDICARE, OTHER | END 2020-02-15 12:48 | disposition home or self-care (01) | LOC: LAB 12:47 | PROVIDERS: ATTEND Physician Assistant Medical | DX: I82.90 Acute embolism and thrombosis of unspecified vein (principal) | CPT/HCPCS: 85610 ==

== ENCOUNTER 2020-02-29 10:21 | Outpatient (CLI) | payer MEDICARE, OTHER ==
[2020-02-29 10:35] LABS: BASOPHILS # (AUTO) 0.1 10^3/uL (0.0-0.1); EOSINOPHILS # (AUTO) 0.1 10^3/uL (0.0-0.7); EOSINOPHILS % (AUTO) 1.1 %; HGB - HEMOGLOBIN 13.1 g/dL (14.0-18.0); LYMPHOCYTES # (AUTO) 1.5 10^3/uL (1.5-3.5); LYMPHOCYTES % (AUTO) 28.8 %; MEAN CORPUSCULAR HEMOGLOBIN 30.6 pg (27.0-31.0); MEAN CORPUSCULAR HGB CONC 33.2 g/dL (32.0-36.0); MEAN CORPUSCULAR VOLUME 92.1 fL (80.0-94.0); MEAN PLATELET VOLUME 8.9 fL (7.4-11.4); MONOCYTES # (AUTO) 0.7 10^3/uL (0.0-1.0); MONOCYTES % (AUTO) 13.4 %; NEUTROPHILS # (AUTO) 2.9 10^3/uL (1.5-6.6); NEUTROPHILS % (AUTO) 55.3 %; PLT - PLATELET COUNT 249 10^3/uL (130-450); RED BLOOD COUNT 4.28 10^6/uL (4.70-6.10); RED CELL DISTRIBUTION WIDTH 13.3 % (12.0-15.0); WHITE BLOOD COUNT 5.2 x10^3/uL (4.8-10.8)
[2020-02-29 10:57] LABS: ALBUMIN 3.9 g/dL (3.2-5.5); ALBUMIN/GLOBULIN RATIO 1.3 (1.0-2.2); ALKALINE PHOSPHATASE 50 IU/L (42-121); ALT ALANINE AMINOTRANSFERASE 17 IU/L (10-60); AST ASPARTATE AMINOTRANSFERASE 17 IU/L (10-42); BILIRUBIN,TOTAL 0.9 mg/dL (0.2-1.0); BUN - BLOOD UREA NITROGEN 17 mg/dL (6-20); CALCIUM 9.4 mg/dL (8.5-10.3); CARBON DIOXIDE - CO2 26 mmol/L (21-32); CHLORIDE 101 mmol/L (101-111); CHOL/HDL RATIO 3.9 (<5.0); CHOLESTEROL 156 mg/dL; CREATININE 1.1 mg/dL (0.6-1.2); GLUCOSE 86 mg/dL (70-100); HDL CHOLESTEROL 40 mg/dL; LDL CHOLESTEROL,CALCULATED 96 mg/dL; LDL/HDL RATIO 2.4 (<3.6); SODIUM 142 mmol/L (135-145); TOTAL PROTEIN 6.9 g/dL (6.7-8.2); VLDL CHOLESTEROL 20 mg/dL
== END 2020-02-29 10:22 | disposition home or self-care (01) ==
LOC: LAB 10:21
PROVIDERS: ATTEND Nurse Practitioner
DX: I82.90 Acute embolism and thrombosis of unspecified vein (principal); Z79.899 Other long term (current) drug therapy; D64.9 Anemia, unspecified; R73.9 Hyperglycemia, unspecified; I10 Essential (primary) hypertension
CPT/HCPCS: 36415; 80053; 80061; 83721; 84443; 85025; 85610

== ENCOUNTER 2020-03-22 07:00 | Outpatient (CLI) | payer MEDICARE, OTHER | END 2020-03-22 23:59 | disposition home or self-care (01) | LOC: LAB 07:00 | PROVIDERS: ATTEND Physician Assistant Medical | DX: I82.90 Acute embolism and thrombosis of unspecified vein (principal) | CPT/HCPCS: 85610 ==

== ENCOUNTER 2020-03-27 12:17 | Outpatient (CLI) | payer MEDICARE, OTHER ==
[2020-03-27 12:35] LABS: BASOPHILS # (AUTO) 0.1 10^3/uL (0.0-0.1); BASOPHILS % (AUTO) 1.1 %; EOSINOPHILS % (AUTO) 0.8 %; HGB - HEMOGLOBIN 13.2 g/dL (14.0-18.0); LYMPHOCYTES # (AUTO) 1.1 10^3/uL (1.5-3.5); LYMPHOCYTES % (AUTO) 20.1 %; MEAN CORPUSCULAR HEMOGLOBIN 30.3 pg (27.0-31.0); MEAN CORPUSCULAR HGB CONC 32.7 g/dL (32.0-36.0); MEAN CORPUSCULAR VOLUME 92.7 fL (80.0-94.0); MONOCYTES # (AUTO) 0.5 10^3/uL (0.0-1.0); MONOCYTES % (AUTO) 9.4 %; NEUTROPHILS # (AUTO) 3.7 10^3/uL (1.5-6.6); NEUTROPHILS % (AUTO) 68.4 %; PLT - PLATELET COUNT 236 10^3/uL (130-450); RED BLOOD COUNT 4.36 10^6/uL (4.70-6.10); RED CELL DISTRIBUTION WIDTH 13.1 % (12.0-15.0); WHITE BLOOD COUNT 5.3 x10^3/uL (4.8-10.8)
== END 2020-03-27 12:18 | disposition home or self-care (01) ==
LOC: LAB 12:17
PROVIDERS: ATTEND Nurse Practitioner
DX: D64.9 Anemia, unspecified (principal)
CPT/HCPCS: 36415; 85025

== ENCOUNTER 2020-04-06 11:27 | Outpatient (CLI) | payer MEDICARE, OTHER | END 2020-04-06 11:28 | disposition home or self-care (01) | LOC: LAB 11:27 | PROVIDERS: ATTEND Physician Assistant Medical | DX: I82.90 Acute embolism and thrombosis of unspecified vein (principal) | CPT/HCPCS: 85610 ==

== ENCOUNTER 2020-05-09 08:00 | Outpatient (CLI) | payer MEDICARE, OTHER | END 2020-05-09 23:59 | disposition home or self-care (01) | LOC: LAB 08:00 | PROVIDERS: ATTEND Physician Assistant Medical | DX: I82.90 Acute embolism and thrombosis of unspecified vein (principal) | CPT/HCPCS: 85610 ==

== ENCOUNTER 2020-06-08 11:47 | Outpatient (CLI) | payer MEDICARE, OTHER | END 2020-06-08 11:48 | disposition home or self-care (01) | LOC: LAB 11:47 | PROVIDERS: ATTEND Physician Assistant Medical | DX: I82.90 Acute embolism and thrombosis of unspecified vein (principal) | CPT/HCPCS: 85610 ==

== ENCOUNTER 2020-06-26 11:18 | Outpatient (CLI) | payer MEDICARE, OTHER | END 2020-06-26 11:19 | disposition home or self-care (01) | LOC: LAB 11:18 | PROVIDERS: ATTEND Physician Assistant Medical | DX: I82.90 Acute embolism and thrombosis of unspecified vein (principal) | CPT/HCPCS: 85610 ==

== ENCOUNTER 2020-07-27 11:54 | Outpatient (CLI) | payer MEDICARE, OTHER | END 2020-07-27 23:59 | disposition home or self-care (01) | LOC: LAB 11:54 | PROVIDERS: ATTEND Physician Assistant Medical | DX: I82.90 Acute embolism and thrombosis of unspecified vein (principal) | CPT/HCPCS: 85610 ==

== ENCOUNTER 2020-08-03 08:00 | Outpatient (CLI) | payer MEDICARE, OTHER | END 2020-08-03 23:59 | disposition home or self-care (01) | LOC: LAB 08:00 | PROVIDERS: ATTEND Physician Assistant Medical | DX: I82.90 Acute embolism and thrombosis of unspecified vein (principal) | CPT/HCPCS: 85610 ==

== ENCOUNTER 2020-08-14 11:05 | Outpatient (CLI) | payer MEDICARE, OTHER | END 2020-08-14 11:06 | disposition home or self-care (01) | LOC: LAB 11:05 | PROVIDERS: ATTEND Physician Assistant Medical | DX: I82.90 Acute embolism and thrombosis of unspecified vein (principal) | CPT/HCPCS: 36416; 85610 ==

== ENCOUNTER 2020-08-23 11:16 | Outpatient (CLI) | payer MEDICARE, OTHER | END 2020-08-23 11:17 | disposition home or self-care (01) | LOC: LAB 11:16 | PROVIDERS: ATTEND Physician Assistant Medical | DX: I82.90 Acute embolism and thrombosis of unspecified vein (principal) | CPT/HCPCS: 36416; 85610 ==

== ENCOUNTER 2020-09-06 12:01 | Outpatient (CLI) | payer MEDICARE, OTHER | END 2020-09-06 12:02 | disposition home or self-care (01) | LOC: LAB 12:01 | PROVIDERS: ATTEND Physician Assistant Medical | DX: I82.90 Acute embolism and thrombosis of unspecified vein (principal) | CPT/HCPCS: 36416; 85610 ==

== ENCOUNTER 2020-09-21 10:29 | Outpatient (CLI) | payer MEDICARE, OTHER | END 2020-09-21 10:30 | disposition home or self-care (01) | LOC: LAB 10:29 | PROVIDERS: ATTEND Physician Assistant Medical | DX: I82.90 Acute embolism and thrombosis of unspecified vein (principal) | CPT/HCPCS: 36416; 85610 ==

== ENCOUNTER 2020-09-28 10:24 | Outpatient (CLI) | payer MEDICARE, OTHER | END 2020-09-28 10:25 | disposition home or self-care (01) | LOC: LAB 10:24 | PROVIDERS: ATTEND Physician Assistant Medical | DX: I82.90 Acute embolism and thrombosis of unspecified vein (principal) | CPT/HCPCS: 36416; 85610 ==

== ENCOUNTER 2020-10-19 12:51 | Outpatient (CLI) | payer MEDICARE, OTHER | END 2020-10-19 12:52 | disposition home or self-care (01) | LOC: LAB 12:51 | PROVIDERS: ATTEND Physician Assistant Medical | DX: I82.90 Acute embolism and thrombosis of unspecified vein (principal) | CPT/HCPCS: 36416; 85610 ==

== ENCOUNTER 2020-11-19 07:00 | Outpatient (CLI) | payer MEDICARE, OTHER | END 2020-11-19 23:59 | disposition home or self-care (01) | LOC: LAB 07:00 | PROVIDERS: ATTEND Physician Assistant Medical | DX: I82.90 Acute embolism and thrombosis of unspecified vein (principal) | CPT/HCPCS: 36416; 85610 ==

== ENCOUNTER 2020-12-18 09:55 | Outpatient (CLI) | payer MEDICARE, OTHER | END 2020-12-18 09:56 | disposition home or self-care (01) | LOC: LAB 09:55 | PROVIDERS: ATTEND Physician Assistant Medical | DX: I82.90 Acute embolism and thrombosis of unspecified vein (principal) | CPT/HCPCS: 36416; 85610 ==

== ENCOUNTER 2021-01-16 10:17 | Outpatient (CLI) | payer MEDICARE, OTHER | END 2021-01-16 10:18 | disposition home or self-care (01) | LOC: LAB 10:17 | PROVIDERS: ATTEND Physician Assistant Medical | DX: I82.90 Acute embolism and thrombosis of unspecified vein (principal) | CPT/HCPCS: 36416; 85610 ==

== ENCOUNTER 2021-02-15 11:28 | Outpatient (CLI) | payer MEDICARE, OTHER | END 2021-02-15 11:29 | disposition home or self-care (01) | LOC: LAB 11:28 | PROVIDERS: ATTEND Physician Assistant Medical | DX: I82.90 Acute embolism and thrombosis of unspecified vein (principal) | CPT/HCPCS: 36416; 85610 ==

== ENCOUNTER 2021-03-18 13:18 | Outpatient (CLI) | payer MEDICARE, OTHER | END 2021-03-18 13:19 | disposition home or self-care (01) | LOC: LAB 13:18 | PROVIDERS: ATTEND Physician Assistant Medical | DX: I82.90 Acute embolism and thrombosis of unspecified vein (principal) | CPT/HCPCS: 36416; 85610 ==

== ENCOUNTER 2021-04-25 14:36 | Outpatient (CLI) | payer MEDICARE, OTHER | END 2021-04-25 14:37 | disposition home or self-care (01) | LOC: LAB 14:36 | PROVIDERS: ATTEND Physician Assistant Medical | DX: I82.90 Acute embolism and thrombosis of unspecified vein (principal) | CPT/HCPCS: 36416; 85610 ==

== ENCOUNTER 2021-05-24 11:47 | Outpatient (CLI) | payer MEDICARE, OTHER | END 2021-05-24 11:48 | disposition home or self-care (01) | LOC: LAB 11:47 | PROVIDERS: ATTEND Physician Assistant Medical | DX: I82.90 Acute embolism and thrombosis of unspecified vein (principal) | CPT/HCPCS: 36416; 85610 ==

== ENCOUNTER 2021-06-14 10:45 | Outpatient (CLI) | payer MEDICARE, OTHER | END 2021-06-14 10:46 | disposition home or self-care (01) | LOC: LAB 10:45 | PROVIDERS: ATTEND Physician Assistant Medical | DX: I82.90 Acute embolism and thrombosis of unspecified vein (principal) | CPT/HCPCS: 36416; 85610 ==

== ENCOUNTER 2021-07-18 11:01 | Outpatient (CLI) | payer MEDICARE, OTHER ==
[2021-07-18 11:18] LABS: BASOPHILS # (AUTO) 0.1 10^3/uL (0.0-0.1); BASOPHILS % (AUTO) 0.9 %; EOSINOPHILS # (AUTO) 0.4 10^3/uL (0.0-0.7); EOSINOPHILS % (AUTO) 6.9 %; HCT - HEMATOCRIT 38.6 % (42.0-52.0); HGB - HEMOGLOBIN 12.5 g/dL (14.0-18.0); LYMPHOCYTES # (AUTO) 1.4 10^3/uL (1.5-3.5); LYMPHOCYTES % (AUTO) 25.2 %; MEAN CORPUSCULAR HEMOGLOBIN 29.7 pg (27.0-31.0); MEAN CORPUSCULAR HGB CONC 32.4 g/dL (32.0-36.0); MEAN CORPUSCULAR VOLUME 91.7 fL (80.0-94.0); MEAN PLATELET VOLUME 9.5 fL (7.4-11.4); MONOCYTES # (AUTO) 0.5 10^3/uL (0.0-1.0); MONOCYTES % (AUTO) 8.8 %; NEUTROPHILS # (AUTO) 3.1 10^3/uL (1.5-6.6); PLT - PLATELET COUNT 226 10^3/uL (130-450); RED BLOOD COUNT 4.21 10^6/uL (4.70-6.10); RED CELL DISTRIBUTION WIDTH 13.5 % (12.0-15.0); WHITE BLOOD COUNT 5.4 x10^3/uL (4.8-10.8)
[2021-07-18 11:32] LABS: ALBUMIN 4.1 g/dL (3.2-5.5); ALBUMIN/GLOBULIN RATIO 1.5 (1.0-2.2); ALKALINE PHOSPHATASE 36 IU/L (42-121); ALT ALANINE AMINOTRANSFERASE 14 IU/L (10-60); AST ASPARTATE AMINOTRANSFERASE 17 IU/L (10-42); BILIRUBIN,TOTAL 0.7 mg/dL (0.2-1.0); BUN - BLOOD UREA NITROGEN 10 mg/dL (6-20); CALCIUM 9.1 mg/dL (8.5-10.3); CARBON DIOXIDE - CO2 28 mmol/L (21-32); CHLORIDE 103 mmol/L (101-111); CHOLESTEROL 153 mg/dL; CREATININE 0.9 mg/dL (0.6-1.2); GFR - MDRD 83 (>89); GLUCOSE 99 mg/dL (70-100); HDL CHOLESTEROL 51 mg/dL; LDL CHOLESTEROL,CALCULATED 91 mg/dL; LDL/HDL RATIO 1.8 (<3.6); POTASSIUM 4.2 mmol/L (3.5-5.0); SODIUM 139 mmol/L (135-145); TOTAL PROTEIN 6.9 g/dL (6.7-8.2); TRIGLYCERIDES 55 mg/dL; VLDL CHOLESTEROL 11 mg/dL
[2021-07-18 11:43] LABS: THYROID STIMULATING HORMONE 0.85 uIU/mL (0.34-5.60)
[2021-07-18 13:07] LABS: ESTIMATED AVERAGE GLUCOSE 120 mg/dL (70-100); HEMOGLOBIN A1c% 5.8 % (4.27-6.07)
== END 2021-07-18 11:02 | disposition home or self-care (01) ==
LOC: LAB 11:01
PROVIDERS: ATTEND Family Medicine
DX: D64.9 Anemia, unspecified (principal); R73.9 Hyperglycemia, unspecified; I10 Essential (primary) hypertension; I82.409 Acute embolism and thrombosis of unspecified deep veins of unspecified lower extremity; F32.A Depression, unspecified
CPT/HCPCS: 36415; 80053; 80061; 83036; 83721; 84443; 85025

== ENCOUNTER 2021-10-31 08:49 | Day surgery (SDC) | payer MEDICARE, OTHER ==
[2021-10-31] MEDS ORDERED: PROPOFOL 500 MG/50 ML 500 MG/50 ML VIAL ONE (09:05)
[2021-10-31] MEDS ORDERED: LIDOCAINE-MPF 2% 5 ML VIAL ONE (09:05)
[2021-10-31] MEDS ORDERED: LACTATED RINGERS 1,000 ML IV ONE ×2 (09:12→10:17)
--- NOTE | 2021-10-31 09:44 | ANESTHESIA ---
Pre-Anesthesia VS, & Labs - Diagnosis hx of colon polyps - Procedure colonoscopy Vital Signs: Temp Pulse Resp BP Pulse Ox 36.7 C 62 12 147/73 H 99 10/31/21 09:00 10/31/21 09:00 10/31/21 09:00 10/31/21 09:00 10/31/21 09:00 Height: 5 ft 8 in Weight (kg): 64 kg Body Mass Index: 21.4 BMI Classification: Healthy weight - NPO >8 hours Home Medications and Allergies Allergies/Adverse Reactions: Allergies Allergy/AdvReac Type Severity Reaction Status Date / Time No Known Drug Allergies Allergy Verified 10/31/21 09:14 Anes History & Medical History - Anesthetic History Anesthesia Complications: reports: No previous complications Family history of Anesthesia Complications: Denies Family history of Malignant Hyperthermia: Denies - Medical History Cardiovascular: reports: Hypertension (previously on lisinopril- not taken in the last month per patient) Pulmonary: reports: Asthma, Other (RLL resection at age 27) Gastrointestinal: reports: Colon polyps, Other (recent weight loss) Urinary: reports: None Neuro: reports: None Musculoskeletal: reports: None Endocrine/Autoimmune: reports: None Blood Disorders: reports: Anemia Smoking Status: Never smoker Psychosocial: reports: Depression History of Cancer?: No - Surgical History General: reports: Colonoscopy Cardiothoracic: reports: Other Orthopedic: reports: Other (knee surgery) Exam Mouth Openin Fingerbreadth Mallampati classification: I Thyromental Distance: 4-6 cm Respiratory: Lungs clear, Normal breath sounds, No respiratory distress, No accessory muscle use Cardiovascular: Regular rate, Normal S1, Normal S2, No murmurs Mental/Cognitive Status: Alert/Oriented X3, Normal for patient Cognitive Status: Within normal limits Plan Anesthesia Type: General, Total IV Consent for Procedure(s) Verified and Reviewed: Yes Code Status: Attempt Resuscitation ASA classification: 2-Mild systemic disease Is this case an emergency?: No
[2021-10-31] MEDS ORDERED: SIMETHICONE 40 MG/0.6 ML 30 ML BOTTLE PO ONE (09:54)
[2021-10-31 10:47] VITALS: BP 139/69
--- NOTE | 2021-10-31 11:08 | ANESTHESIA POST OP EVALUATION ---
Anesthesia Post Eval - Post Anesthesia Eval Vitals: Last Vital Signs Temp 36.4 C L 10/31/21 10:17 Pulse 52 L 10/31/21 10:47 Resp 13 10/31/21 10:47 BP 139/69 H 10/31/21 10:47 Pulse Ox 100 10/31/21 10:47 CV Function Including HR & BP: Stable Pain Control: Satisfactory Nausea & Vomiting: Negative Mental Status: Baseline Respiratory Status: Airway Patent Hydration Status: Satisfactory Anesthesia Complications: None
== END 2021-10-31 08:50 | disposition home or self-care (01) ==
LOC: SDS 08:49
PROVIDERS: ATTEND Surgery
PROC: 0DBL8ZX Excision of Transverse Colon, Via Natural or Artificial Opening Endoscopic, Diagnostic (ICD-10-PCS; 2021-10-31)
PROC: 0DBN8ZX Excision of Sigmoid Colon, Via Natural or Artificial Opening Endoscopic, Diagnostic (ICD-10-PCS; principal; 2021-10-31 10:15)
DX: Z12.11 Encounter for screening for malignant neoplasm of colon (principal); D12.3 Benign neoplasm of transverse colon; K63.5 Polyp of colon; K57.30 Diverticulosis of large intestine without perforation or abscess without bleeding; I10 Essential (primary) hypertension; J45.909 Unspecified asthma, uncomplicated; Z79.899 Other long term (current) drug therapy; Z80.1 Family history of malignant neoplasm of trachea, bronchus and lung
CPT/HCPCS: 45380; A9270; J7120

== ENCOUNTER 2023-11-19 10:54 | Outpatient (CLI) | payer MEDICARE, OTHER ==
[2023-11-19 11:03] LABS: BASOPHILS # (AUTO) 0.1 10^3/uL (0.0-0.1); BASOPHILS % (AUTO) 0.8 %; EOSINOPHILS # (AUTO) 0.1 10^3/uL (0.0-0.7); EOSINOPHILS % (AUTO) 1.6 %; HCT - HEMATOCRIT 42.1 % (42.0-52.0); HGB - HEMOGLOBIN 13.7 g/dL (14.0-18.0); LYMPHOCYTES # (AUTO) 1.9 10^3/uL (1.5-3.5); MEAN CORPUSCULAR HEMOGLOBIN 29.2 pg (27.0-31.0); MEAN CORPUSCULAR HGB CONC 32.5 g/dL (32.0-36.0); MEAN CORPUSCULAR VOLUME 89.8 fL (80.0-94.0); MEAN PLATELET VOLUME 9.4 fL (7.4-11.4); MONOCYTES # (AUTO) 0.6 10^3/uL (0.0-1.0); NEUTROPHILS # (AUTO) 3.6 10^3/uL (1.5-6.6); NEUTROPHILS % (AUTO) 57.3 %; PLT - PLATELET COUNT 215 10^3/uL (130-450); RED BLOOD COUNT 4.69 10^6/uL (4.70-6.10); RED CELL DISTRIBUTION WIDTH 13.7 % (12.0-15.0); WHITE BLOOD COUNT 6.3 x10^3/uL (4.8-10.8)
[2023-11-19 11:20] LABS: ALBUMIN 4.3 g/dL (3.2-5.5); ALBUMIN/GLOBULIN RATIO 1.8 (1.0-2.2); BILIRUBIN,TOTAL 0.6 mg/dL (0.2-1.0); CALCIUM 9.5 mg/dL (8.5-10.3); POTASSIUM 4.1 mmol/L (3.5-4.5); TOTAL PROTEIN 6.7 g/dL (6.4-8.9)
== END 2023-11-19 10:55 | disposition home or self-care (01) ==
LOC: LAB 10:54
PROVIDERS: ATTEND Physician Assistant Medical
DX: D64.9 Anemia, unspecified (principal); R73.9 Hyperglycemia, unspecified; Z12.5 Encounter for screening for malignant neoplasm of prostate
CPT/HCPCS: 36415; 80053; 85025; G0103; 84153